=== PATIENT | female | born 1965 | race Caucasian/White ===

== ENCOUNTER → 2021-01-21 | Outpatient (CLI) | payer OTHER ==
[~2021-01-21] MED LIST: BACLOFEN10 MG PO; CALCIUM + D SO1 EACH PO; CLARITIN 10MG T10 MG PO; CLONAZEPAM0.125 MG SL; COQ-10100 MG PO; CRESTOR10 MG PO; EFFEXOR XR150 MG PO; KEPPRA750 MG PO; LYRICA75 MG PO; MAGNESIUM400 MG PO; PAMELOR 25 MG C25 MG PO; PEPCID20 MG PO; PERCOCET 5-3251 EACH PO; SOY ISOFLAVONES40 MG PO; VITAMIN B-122500 MCG PO; VITAMIN D-32000 UNIT PO; XARELTO20 MG PO
== END ==
LOC: US 10:00
DX: R10.84 Generalized abdominal pain (principal); R19.7 Diarrhea, unspecified; K76.0 Fatty (change of) liver, not elsewhere classified
CPT/HCPCS: 76705

== ENCOUNTER → 2021-03-21 | Outpatient (CLI) | payer OTHER | LOC: MAMO 15:00 | DX: Z12.31 Encounter for screening mammogram for malignant neoplasm of breast (principal); M62.838 Other muscle spasm | CPT/HCPCS: 77063; 77067 ==

== ENCOUNTER 2021-06-22 21:18 | Emergency (ER) | payer OTHER | END 2021-06-22 23:55 | disposition home or self-care (01) | LOC: ER1 21:18 | DX: R60.0 Localized edema (principal) | CPT/HCPCS: 73030; 73070; 73110; 73130; 99283 ==

== ENCOUNTER 2021-07-27 23:20 | Emergency (ER) | payer OTHER ==
[~2021-07-27 23:20] MED LIST changes: -CLARITIN 10MG T10 MG PO; +CLARITIN10 MG PO; +LOPRESSOR 25 MG25 MG PO; +METROCREAM 0.7545 GM TOP; +OMNICEF 300 MG300 MG PO; +PROTONIX40 MG PO; +RESTASIS 0.05%1 EACH EYEBOTH; -VITAMIN D-32000 UNIT PO; +VITAMIN D325 MCG PO; +VOLTAREN ARTHRI20 GM TOP
[2021-07-28 04:56] LABS: HEMOGLOBIN 11.1 gm/dl (12.3-15.3); RED BLOOD COUNT 3.94 M/UL (4.00-5.10); WHITE BLOOD COUNT 7.6 K/UL (4.5-11.0)
[2021-07-28 05:00] LABS: BUN/CREATININE RATIO 10 (0-10)
== END 2021-07-28 08:25 | disposition home or self-care (01) ==
LOC: ER1 23:20
PROVIDERS: Emergency Medicine
DX: E87.6 Hypokalemia (principal); Z86.73 Personal history of transient ischemic attack (TIA), and cerebral infarction without residual deficits; Z88.0 Allergy status to penicillin; Z88.5 Allergy status to narcotic agent; Z91.040 Latex allergy status
CPT/HCPCS: 80053; 81001; 83605; 85025; 87086; 99284